=== PATIENT | male | born 1950 | race Caucasian/White ===

== ENCOUNTER → 2016-10-02 | Outpatient (CLI) | payer MEDICARE, OTHER | LOC: GMAL 11:38 | PROVIDERS: ATTEND Family Medicine | DX: Z12.5 Encounter for screening for malignant neoplasm of prostate (principal) ==

== ENCOUNTER 2016-11-27 03:37 | Emergency (ER) | payer MEDICARE, OTHER ==
[2016-11-27] MEDS ORDERED: KETOROLAC TROMETHAMINE INJ 30 MG/ML VIAL IV ONE (04:01)
[2016-11-27] MEDS ORDERED: SODIUM CHLORIDE 0.9% 1000ML 1,000 ML IVS ONE (04:01)
[2016-11-27] MEDS ORDERED: ONDANSETRON INJ 4 MG/2 ML VIAL IV ONE (04:01)
--- NOTE | 2016-11-27 04:05 | ED.PDOC ---
History of Present Illness - General Chief Complaint: Abdominal Pain Stated Complaint: left lower quadrant pain, N/V Time Seen by Provider: 11/27/16 03:58 Information Source: patient, RN notes reviewed, Vital Signs reviewed Exam Limitations: no limitations - History of Present Illness Initial Comments: Patient c/o LLQ pain that woke him up around 1 am. Pain is constant but varying in intensity. + diaphoresis, + N/V. Pain radiates to his left testicle. + urinary frequency and urgency. Abdominal Pain Onset Location: LLQ Pain Radiation: groin Quality: severe, sharpness, stabbing Timing/Duration: 1-3 hours Improving Factors: nothing Worsening Factors: nothing Associated Symptoms: diaphoresis, nausea/vomiting Review of Systems - Review of Systems Constitutional: States: diaphoresis. Denies: chills, fever, malaise EENTM: States: no symptoms reported Respiratory: States: no symptoms reported. Denies: cough, short of breath Cardiology: States: no symptoms reported. Denies: chest pain, palpitations, syncope Gastrointestinal/Abdominal: States: see HPI, abdominal pain, nausea, vomiting. Denies: constipation, diarrhea Genitourinary: States: see HPI, frequency, pain Musculoskeletal: States: no symptoms reported. Denies: back pain Skin: States: no symptoms reported Neurological: States: no symptoms reported. Denies: headache Endocrine: States: no symptoms reported Past Medical History (General) - Patient Medical History Hx Seizures: No Hx Stroke: No Hx Dementia: No Hx Asthma: No Hx of COPD: No Hx Cardiac Disorders: Yes - 5 way bypass Hx Congestive Heart Failure: No Hx Pacemaker: No Hx Hypertension: Yes Hx Thyroid Disease: No Hx Diabetes: Yes Hx Gastroesophageal Reflux: Yes Hx Renal Disease: No Hx Cancer: No Hx of HIV: No Hx Hepatitis C: No Hx MRSA: No Surgical History: other - Vaccination History Hx Tetanus, Diphtheria Vaccination: No Hx Influenza Vaccination: Yes Hx Pneumococcal Vaccination: Yes Immunizations Up to Date: Yes - Social History Hx Tobacco Use: No Hx Chewing Tobacco Use: No Hx Alcohol Use: Yes - 1/2 gallon a week Hx Substance Use: No Hx Substance Use Treatment: No Hx Depression: No Hx Physical Abuse: No Hx Emotional Abuse: No Hx Suspected Abuse: No - Female History Patient : No Family Medical History - Family History Mother Family History: Unknown Physical Exam - Physical Exam General Appearance: Alert, Obvious distress, Restless, Well Developed, Well Groomed, Well Hydrated, Well Nourished Neck: non-tender, full range of motion, supple, normal inspection Respiratory: chest non-tender, lungs clear, normal breath sounds, no respiratory distress, no accessory muscle use Cardiovascular/Chest: regular rate, rhythm, no gallop, no JVD, no murmur Gastrointestinal/Abdominal: normal bowel sounds, non tender, soft, no organomegaly, no pulsatile mass Back Exam: normal inspection, no CVA tenderness Extremity: normal range of motion, non-tender, normal inspection Neurologic: no motor/sensory deficits, alert, normal mood/affect, oriented x 3 Skin Exam: normal color, warm/dry Lymphatic: no adenopathy Progress - Progress Progress: 11/27/16 04:50 Pain and nausea are much improved after Toradol and Zofran. 11/27/16 05:16 Discussed the results and home treatment with patient. He thinks he still has some hydrocodone at home. - Results/Orders Results/Orders: Laboratory Tests 11/27/16 04:00 WBC 11.4 H RBC 4.53 L Hgb 14.5 Hct 42.7 MCV 94.3 H MCH 32.0 H MCHC 34.0 RDW 13.5 Plt Count 241 MPV 8.0 Absolute Neuts (auto) 7.80 H Absolute Lymphs (auto) 2.10 Absolute Monos (auto) 1.10 H Absolute Eos (auto) 0.30 Absolute Basos (auto) 0.10 Neutrophils % 68.7 Lymphocytes % 18.3 L Monocytes % 9.7 H Eosinophils % 2.6 Basophils % 0.7 Sodium 135 Potassium 5.3 H Chloride 98 L Carbon Dioxide 27 Anion Gap 15.3 BUN 24 H Creatinine 0.90 BUN/Creatinine Ratio 26.7 H Random Glucose 202 H Serum Osmolality 279.9 Calcium 9.3 Total Bilirubin 0.4 AST 27 ALT 28 Alkaline Phosphatase 43 Serum Total Protein 7.4 Albumin 4.1 Globulin 3.3 Albumin/Globulin Ratio 1.2 Urine Color Yellow Urine Appearance Clear Urine pH 5.0 Ur Specific Warren 1.025 Urine Protein Trace Urine Glucose (UA) Negative Urine Ketones Negative Urine Blood Negative Urine Nitrite Negative Urine Bilirubin Negative Urine Urobilinogen 0.2 Ur Leukocyte Esterase Negative Urine RBC 0 Urine WBC 0-1 Ur Epithelial Cells 0-1 Urine Bacteria 0 Vital Signs - 8 hr 02/28/17 03:50 Temperature 97.7 F Pulse Rate [ 73 monitor] Respiratory 21 Rate Blood Pressure 157/95 [Left Arm] O2 Sat by Pulse 94 L Oximetry - EKG/XRAY/CT CT Ordered: Yes - 3mm L UVJ stone,mild hydro, otherwise normal Abd/Pelvis CT Departure - Departure Clinical Impression: Kidney stone on left side Time of Disposition: 05:17 Disposition: Discharge to Home or Self Care Condition: Good Departure Forms: ED Discharge - Pt. Copy, Patient Portal Self Enrollment Instructions: DI for Kidney Stones Diet: resume usual diet, other - Increase fluid intake Activity: increase activity as tolerated Referrals: Graham Gamino III, MD [Primary Care Provider] - 1-2 Weeks Prescriptions: Ondansetron [Zofran Odt] 4 mg PO Q4HR PRN #20 tab PRN Reason: Nausea/Vomiting Tramadol HCl 50 mg PO Q6HRS PRN #15 tab PRN Reason: Pain Home Medications: Ambulatory Orders Carvedilol 3.125 mg PO BID 10/12/14 Clopidogrel Bisulfate 75 mg PO DAILY 10/12/14 Lisinopril 20 mg PO BID 10/12/14 Potassium Chloride Microencaps [Klor-Con M10] 10 meq PO DAILY 10/12/14 Pravastatin Sodium [Pravachol] 40 mg PO BEDTIME 10/12/14 Spironolactone [Aldactone] 25 mg PO DAILY@0700 10/12/14 Amlodipine Besylate 10 mg PO QAM 11/27/16 Aspirin [Aspirin Adult Low Dose] 81 mg PO QAM 11/27/16 Furosemide [Lasix] 40 mg PO DAILY 11/27/16 Glimepiride 1 mg PO QPM 11/27/16 Hydrochlorothiazide 12.5 mg PO BID 11/27/16 Metformin HCl 500 mg PO BID 11/27/16 Nitroglycerin 0.4 mg SL PRN 11/27/16 Ondansetron [Zofran Odt] 4 mg PO Q4HR PRN #20 tab 11/27/16 Phentermine HCl 37.5 mg PO DAILY 11/27/16 Tramadol HCl 50 mg PO Q6HRS PRN #15 tab 11/27/16 Vardenafil HCl [Levitra] 20 mg PO PRN 11/27/16
[2016-11-27 05:29] VITALS: BP 129/81; TEMP 97.9; O2SAT 95
--- NOTE | 2016-11-30 13:37 | CT ---
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 TECHNIQUE: Volumetric CT acquisition was performed through the abdomen and pelvis. Images in the axial and coronal planes were presented for interpretation FINDINGS: The visualized portions of the lung bases are clear. The cardiomediastinal structures are within normal limits. Within the upper abdomen, the liver and spleen are normal in size and morphology. There is diffuse fatty infiltration of the liver. The gallbladder is normal in morphology. The intra/extrahepatic biliary tree is normal in appearance. The pancreas and adrenal glands are normal. The right kidney is normal in size in the right ureter is normal in course and caliber. There are no right renal calculi, distal obstructing stones, or evidence of hydronephrosis/hydroureter. The left kidney is edematous and enlarged. There is a 3 mm partially obstructing stone at the left ureterovesicular junction on axial image 81. There is mild left-sided hydronephrosis and hydroureter. There are no additional left renal calculi or ureteral stones. The stomach and small intestines are within normal limits without evidence of bowel dilation or wall thickening. The appendix is well-visualized and normal, best seen on axial image 61 medial to the cecum. The colon is stool filled and unremarkable. There are moderate descending and sigmoid colonic diverticula without associated wall thickening or inflammatory changes. Within the pelvis, the bladder and rectum are normal. The prostate is age-appropriate. There are no pathologically enlarged inguinal, retroperitoneal, portacaval, or mesenteric lymph nodes. The soft tissue structures of the abdominal wall are normal. There are degenerative changes of the lower lumbar spine with bilateral L5 pars interarticularis defects. There is disc space narrowing and vacuum disc phenomenon at the L4/L5 and L5/S1 levels. There are extensive vascular calcifications throughout the abdominal aorta and its primary branches. Limited evaluation of the venous structures demonstrates no gross abnormalities. IMPRESSION: 1. Partially obstructing 3 mm left ureterovesicular junction stone. 2. No additional renal calculi or distal stones. 3. Degenerative changes of the lower lumbar spine with bilateral L5 spondylolysis. 4. Diverticulosis without evidence of diverticulitis. 5. Fatty liver. Electronically signed by: Sapphire Granados MD 11/27/2016 4:50 AM INDUSTRIAL ORGANIZATIONAL PSYCHOLOGIST
== END 2016-11-27 05:29 | disposition home or self-care (01) ==
LOC: ER 03:37
DX: N20.0 Calculus of kidney (principal); Z95.1 Presence of aortocoronary bypass graft; I10 Essential (primary) hypertension; E11.9 Type 2 diabetes mellitus without complications; K21.9 Gastro-esophageal reflux disease without esophagitis; Z79.82 Long term (current) use of aspirin; Z79.899 Other long term (current) drug therapy
CPT/HCPCS: 74176; 80053; 81001; 85025; J1885; J2405; J7030

== ENCOUNTER 2017-01-17 10:12 | Inpatient (IN) | payer MEDICARE, OTHER ==
--- NOTE | 2017-01-17 10:13 | HP ---
SUPERVISING PHYSICIAN: Dimitris Cantu M.D. CHIEF COMPLAINT: Failure to respond to outpatient treatment plan for an acute upper respiratory infection with concern for early pneumonia. HISTORY OF PRESENT ILLNESS: Mr. Azevedo is 66 year-old male patient of Dr. Gamino' who was seen this past Saturday along with his for an upper respiratory infection. They were both started on antibiotics to include Levaquin as well as nebulizer Albuterol treatments and steroids. His slowly progressed and her symptoms to improve, however Mr. Azevedo has slowly shown a deterioration in his to the point that he is significantly short of breath with any exertional effort and is now starting to cough up purulent sputum and maintain low O2 sats on room air. He does have a significant history of type 2 diabetes mellitus, congestive heart failure and cardiovascular disease. Given that he has failed to respond to antibiotics, steroids and bronchodilator treatments in the outpatient setting, and with the underlying co-morbidities to include diabetes, congestive heart failure and cardiovascular disease, Dr. Gamino requested the patient be admitted to the hospital for continuation of treatment and concerns for worsening acute bronchitis developing into pneumonia. The patient was directly admitted in stable condition to the Medical/Surgical floor. PAST MEDICAL HISTORY: 1. Coronary artery disease. 2. Hyperlipidemia. 3. Hypertension. 4. Previous myocardial infarction in February of 2001 for which he received lytics. 5. Radial head fracture in March of 2004 after he fell off a ladder. 6. Type 2 diabetes diagnosed in 2013 with last A1c being 6.6. 7. Diverticulosis. 8. Fatty liver as noted on recent CT exam. 9. Recent history of kidney stones on 11/27/16. PAST SURGICAL HISTORY: 1. Five vessel coronary artery bypass graft in 08/31/14. Last echocardiogram of 07/09/14 showed an ejection fraction of 65%. HOME MEDICATIONS: 1. Levitra 20 mg as needed. 2. Tramadol 50 mg every 6 hours p.r.n. 3. Aldactone 25 mg daily. 4. Pravachol 80 mg at bedtime. 5. Klor-Con M10 30 mEq daily. 6. Phentermine 37.5 mg daily. 7. Zofran 4 mg every 4 hours as needed. 8. Nitroglycerin 0.4 mg sublingual as needed. 9. Metformin 500 mg b.i.d. 10. Lisinopril 20 mg b.i.d. 11. Hydrochlorothiazide 12.5 mg twice daily. 12. Glimepiride 1 mg daily. 13. Lasix 40 mg daily. 14. Plavix 75 mg daily. 15. Carvedilol 25 mg twice daily. 16. Low dose aspirin 81 mg daily. 17. Amlodipine 10 mg daily. Please refer to an updated verified list of medications in the electronic medical records. CURRENT MEDICATIONS PRESCRIBED PRIOR TO ADMISSION: 1. Prednisone tapering dose pack. 2. Levaquin 500 mg daily for 10 days receiving 4 days. ALLERGIES: CODEINE. FAMILY HISTORY: Father at age 42 secondary to a plane crash. Mother at age 60 from Alzheimer's. 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 Currently lives in [place]. He does have a history of using smokeless tobacco and has a previous history of smoking tobacco but quit 35 years previously. He does note that he drinks alcohol on a regular basis to include liquor approximately up to 6 drinks daily. REVIEW OF SYSTEMS: CONSTITUTIONAL: Notes that he has had some chills but no documented fevers and some general malaise since Saturday. HEENT: Denies any nasal congestion or headaches. RESPIRATORY: As noted in the history of present illness, productive cough, increase in shortness of breath with wheezing. HEART: Denies any chest pains or palpitations. Does have a history of coronary artery disease with a previous coronary artery bypass graft. GASTROINTESTINAL: Denies any nausea, vomiting or diarrhea. GENITOURINARY: He has had increased dysuria that has been present for several months, especially more so with increasing frequency at night. Denies any discomfort or other urinary symptoms. He did have a recent CT of the abdomen on 11/27/16 for a kidney stone. NEUROLOGIC: Denies any headaches, syncopal episodes or vision changes. PHYSICAL EXAMINATION: VITAL SIGNS: Temperature 98.2, pulse 77, blood pressure 110/73, respirations 22 to 24 with some notable increased work to breathe and labored with audible wheezing with O2 saturations on room air showing 90%. Admission weight is 139.6 kg. GENERAL: Initially on admission, the patient was obviously short of breath with some mild respiratory distress noted which did improve with breathing treatments with the patient being somewhat anxious, but after breathing treatments was in no obvious acute distress. HEENT: Tympanic membranes are clear bilaterally. Oropharynx is pink and moist without any lesions. There is no jugular venous distention. NECK: Supple. CHEST: Breath sounds are diminished throughout with diffuse wheezing more prominent expiratory than inspiratory with a prolonged expiratory phase but no rhonchi or rales are noted. CARDIOVASCULAR: Regular rate and rhythm without appreciable murmurs, gallops, or rubs. ABDOMEN: Obese but soft, non-tender. Positive bowel sounds. EXTREMITIES: No clubbing, cyanosis or edema. NEUROLOGIC: He is alert and oriented times three with no focal motor deficits noted. LABORATORY: White count on admission showed slight leukocytosis at 11.7 with hemoglobin 13.7, hematocrit 41.3, platelet count 215,000. Differential did show a left shift. Chemistries showed normal electrolytes with potassium 4.4, sodium 140, carbon dioxide was elevated at 32, BUN 18, creatinine 0.8, glucose 139, calcium 8.7, magnesium 1.5. Liver functions show to be within normal limits. BNP was 62. Urinalysis showed to be within normal limits. MICROBIOLOGY: Blood cultures are pending. Sputum culture is pending. RADIOLOGY: Chest x-ray on admission per radiology interpretation showed cardiomegaly with atelectatic type infiltrate observed in the lingula. ASSESSMENT: 1. Acute upper respiratory infection with bronchitis having failed to respond to outpatient treatment plan with developing lingular pneumonia as noted on radiographic studies and some mild hypoxia on admission with some hypercapnia as well having previously been on bronchodilators, steroids and Levaquin, likely community acquired. 2. Significant history of coronary artery disease with a previous myocardial infarction in February of 2001 and a five vessel coronary artery bypass graft in 2013. 3. Hypertension. 4. Hyperlipidemia. 5. Type 2 diabetes mellitus. 6. Obesity as noted with a body mass index of 41.7. 7. Chronic congestive heart failure with last echocardiogram noted to have an ejection fraction of 65% in 2014 after review of medical records, unknown etiology, likely secondary to previous myocardial infarction with the patient having a normal BNP on admission with no overt signs of exacerbation. 8. Chronic abuse of smokeless tobacco. 9. History of regular alcohol usage with no mention of alcohol abuse with last CT on 11/27/16 indicating a fatty liver. 10. History of kidney stones. 11. Leukocytosis possibly secondary to underlying pneumonia versus some demarginalization from previous steroid administration. PLAN: The patient will be admitted to the Medical/Surgical floor for treatment of community-acquired lingular pneumonia having failed to respond to outpatient treatment plan with previous bronchodilators, steroids and Levaquin. He will be continued on Levaquin as it was noted that both his and himself had similar illnesses and the did show improvement with Levaquin, but given the patient's multiple comorbidities, the patient has failed to respond adequately to treatment. He will be continued on aggressive bronchodilator treatments, chest physiotherapy and oxygen as needed. Will continue with some steroids initially 80 mg every 6 hours times 4 doses with close monitoring of his blood sugars on a sliding scale as per protocol. Will start him on DVT prophylaxis as per protocol. Will continue with Levaquin initially at 750 mg per 24 with doses based off kidney function and continue treatment with reevaluation with a repeat chest x-ray and CBC and BMP in the morning. Will anticipate his length of stay to be 2 to 3 days at which time if he is clinically improved, the patient can continue with outpatient treatment plan to have close clinical followup with his primary care provider, Dr. Gamino. Until discharge, will continue to monitor the patient closely and treat appropriately. #[id number] [facility]
[2017-01-17] MEDS ORDERED: ACETAMINOPHEN 325 MG TAB PO PRN (10:23)
[2017-01-17] MEDS ORDERED: SODIUM CHLORIDE 0.9% (FLUSH) 10 ML SYG IV PRN (10:23)
[2017-01-17] MEDS ORDERED: ALBUTEROL SULFATE 2.5 MG/3 ML VIAL NEB PRN (10:23)
[2017-01-17] MEDS ORDERED: DEXTROSE 50% 25 GM/50 ML SYG IV PRN (10:23)
[2017-01-17] MEDS ORDERED: GLUCAGON INJ 1 MG VIAL SUBCU PRN (10:23)
[2017-01-17] MEDS ORDERED: IV SET AND CAP CHANGE INJ INJ SCH (10:30)
[2017-01-17] MEDS: IPRATROPIUM/ALBUTEROL 3 ML VIAL INH SCH ×3 (10:51→20:46)
[2017-01-17] MEDS: levoFLOXacin 750MG IV 750 MG in PREMIX BAG 1 BAG IVPB SCH (11:23)
--- NOTE | 2017-01-17 11:59 | RAD ---
EXAM DESCRIPTION: Chest,2 Views CLINICAL HISTORY: 66 years Male, Pneumonia COMPARISON: 12 October 2014 TECHNIQUE: PA/lateral FINDINGS: Patient is poststernotomy. Cardiomegaly is evident. No pleural fluid is seen. Atelectatic type infiltrate is observed in the region of the lingula. The right chest is free of acute infiltrate. IMPRESSION: 1. The patient is poststernotomy and cardiomegaly is evident. 2. Atelectatic type infiltrate is observed in the lingula. Electronically signed by: Graham Roman MD 01/17/2017 11:58 AM CDT
[2017-01-17] MEDS: INSULIN LISPRO 100 UNITS/ML PEN SUBCU SCH ×3 (12:22→21:02)
[2017-01-17] MEDS ORDERED: MAGNESIUM SULFATE PREMIX 2GM 2 GM in PREMIX BAG 1 BAG IVPB ONE (13:00)
[2017-01-17] MEDS ORDERED: MAGNESIUM SULFATE PREMIX 2GM 50 ML IVPB ONE (13:03)
[2017-01-17] MEDS: KCL 20MEQ/0.45% NS 1,000 ML IVS PRN (14:17)
[2017-01-17] MEDS: methylPREDNISolone SODIUM SUC 125 MG/2 ML VIAL IV SCH ×2 (14:30→19:53)
[2017-01-17] MEDS ORDERED: PANTOPRAZOLE SODIUM IV 40 MG VIAL ONE (19:12)
[2017-01-17] MEDS: SODIUM CHLORIDE 0.9% (FLUSH) 10 ML SYG IV SCH (21:16)
[2017-01-18] MEDS: methylPREDNISolone SODIUM SUC 125 MG/2 ML VIAL IV SCH ×4 (01:52→22:55)
[2017-01-18] MEDS: KCL 20MEQ/0.45% NS 1,000 ML IVS PRN (02:48)
--- NOTE | 2017-01-18 06:21 | RAD ---
EXAM: Two view chest. INDICATION: Chest pain. COMPARISON: Chest x-ray: 01/17/2017. FINDINGS: Cardiac silhouette: At the upper limit of normal in size [place]: Unremarkable. Lobar consolidation: None. Pleural effusion: None. Pneumothorax: None. Other: Median sternotomy wires are noted Bones: Unremarkable. Other: None. IMPRESSION: 1. No acute cardiopulmonary process. Electronically signed by: Nav Brown MD 01/18/2017 6:20 AM CDT
[2017-01-18] MEDS ORDERED: PANTOPRAZOLE SODIUM IV 40 MG VIAL IV SCH (06:30)
[2017-01-18] MEDS: INSULIN LISPRO 100 UNITS/ML PEN SUBCU SCH ×4 (07:46→21:28)
[2017-01-18] MEDS: SODIUM CHLORIDE 0.9% (FLUSH) 10 ML SYG IV SCH ×2 (07:50→20:47)
[2017-01-18] MEDS: IPRATROPIUM/ALBUTEROL 3 ML VIAL INH SCH ×4 (08:24→20:23)
[2017-01-18] MEDS ORDERED: FUROSEMIDE INJ 40 MG/4 ML VIAL IV ONE (08:47)
[2017-01-18] MEDS ORDERED: metFORMIN HCL 500 MG TAB PO SCH (09:00)
[2017-01-18] MEDS ORDERED: FUROSEMIDE 40 MG TAB PO SCH (09:00)
[2017-01-18] MEDS ORDERED: CARVEDILOL 12.5 MG TAB ONE (09:15)
[2017-01-18] MEDS: CLOPIDOGREL 75 MG TAB PO SCH (09:18)
[2017-01-18] MEDS: TAMSULOSIN 0.4 MG CAP PO SCH (09:18)
[2017-01-18] MEDS: CARVEDILOL 12.5 MG TAB PO SCH ×2 (09:18→20:45)
[2017-01-18] MEDS: POTASSIUM CHLORIDE 10 MEQ TAB PO SCH (09:18)
[2017-01-18] MEDS: ASPIRIN TABLET 325 MG TAB PO SCH (09:19)
[2017-01-18] MEDS: LISINOPRIL 10 MG TAB PO SCH ×2 (09:19→20:45)
[2017-01-18] MEDS: hydroCHLOROthiazide 12.5 MG CAP PO SCH ×2 (09:20→21:28)
[2017-01-18] MEDS: amLODIPine BESYLATE 5 MG TAB PO SCH (09:20)
[2017-01-18] MEDS: levoFLOXacin 750MG IV 750 MG in PREMIX BAG 1 BAG IVPB SCH (09:58)
--- NOTE | 2017-01-18 10:23 | PCM.CORE ---
Physician DVT/VTE - Nurse DVT Assessment & Total Each Risk Factor Represents 3 Points: Medical PT with Hx of DE, CHF, Severe infection/sepsis Each Risk Factor Represents 2 Points: Age 60-74 Each Risk Factor Represents 1 Point: Medical PT at Bed Rest Each Risk Factor is 1 Point: Obesity (BMI >25), Serious Lung disease (pnemonia < 1month, COPD, emphysema,etc) DVT Assessment Score: 8 - 5 or more Very High Risk Treatments: Early Ambulation *, Sequential Compression Device Pharmacological: Enoxaparin 40mg SQ Daily
--- NOTE | 2017-01-18 11:01 | PN ---
SUPERVISING PHYSICIAN: Rell Cantu MD DATE: 01/18/17 SUBJECTIVE: The patient feels somewhat better today. He says he is able to breathe a lot easier. He did have a little shortness of breath through the night requiring additional breathing treatments, but is doing well this morning. He remains afebrile. OBJECTIVE: VITAL SIGNS: T-max 98.4. Pulse 90. Blood pressure 124/86. Respirations 20. Saturation 92% on room air. I&Os show negative balance of 2261 with 2889 in, 5150 out. Weight 138.1 kg, which is down from 139.6 on admission. GENERAL: The patient is resting, sitting at the edge of the bed having just finished a breathing treatment. He is alert. CHEST: Lungs are much more aerated today. He still remains somewhat diminished towards the bases with just a faint coarse rhonchi sound on the left posterior aspect with some faint inspiratory wheezing. HEART: Regular rate and rhythm. ABDOMEN: Obese, but soft and nontender. Positive bowel sounds. EXTREMITIES: No cyanosis, clubbing or edema. NEUROLOGIC: Alert and oriented times three. LABORATORY: White count remains elevated at 11.1, hemoglobin 14.5, hematocrit 44.3, platelet count 241,000. Differential continues to show a left shift. Chemistries show sodium 134, potassium 4.3, BUN 18, creatinine 0.82. Glucoses have been 197 to 44. Liver functions show slightly elevated AST at 45. Magnesium is normalized this morning at 1.9. Urinalysis yesterday was within normal limits. MICROBIOLOGY: Sputum culture pending. Blood cultures negative first 24 hours. RADIOLOGY: Repeat two view chest x-ray this morning per radiology interpretation shows no acute cardiopulmonary process. ASSESSMENT: 1. Acute upper respiratory infection with bronchitis, having failed to respond to outpatient treatment with developing lingular pneumonia as noted on initial radiographic studies on admission with some mild hypoxemia as well with hypercapnia, showing improvement after starting on bronchodilators, corticosteroids, and continued on Levaquin, felt to be likely community acquired. 2. Significant history of coronary artery disease with previous myocardial infarction in February of 2001 and 5 vessel coronary artery bypass graft in 2013. 3. Hypertension. 4. Hyperlipidemia. 5. Type 2 diabetes mellitus. 6. Obesity with body mass index of 41.7. 7. Chronic congestive heart failure with last echocardiogram noted to have an ejection fraction of 65% in 2014 from review of medical records, unknown etiology, likely secondary to previous myocardial infarction with the patient having normal BNP on admission with no overt signs of exacerbation. 8. Chronic abuse of smokeless tobacco. 9. History of regular alcohol usage with no mention of alcohol abuse with last CT on 11/27/16 indicating a fatty liver. 10. History of kidney stones. 11. Leukocytosis, continued, felt to be secondary to underlying pneumonia as well as demargination from continued steroid administration. 12. Hypomagnesemia, improved after replacement. PLAN: We will continue with bronchodilator and aggressive pulmonary hygiene treatment today as well as continued Solu-Medrol with tapering dose. He will continue on Levaquin. We will continue to monitor closely and anticipate discharge probably tomorrow. Until then, we will continue to monitor the patient closely and treat appropriately. #[id number] [facility]
[2017-01-18] MEDS: ENOXAPARIN SODIUM 40 MG/0.4 ML SYG SUBCU SCH (11:39)
[2017-01-18] MEDS ORDERED: TEMAZEPAM 15 MG CAP PO PRN (15:04)
[2017-01-18] MEDS ORDERED: GLIMEPIRIDE 2 MG TAB ONE (16:54)
[2017-01-18] MEDS: metFORMIN HCL 500 MG TAB PO SCH (17:04)
[2017-01-18] MEDS ORDERED: GLIMEPIRIDE 2 MG TAB PO SCH (18:00)
[2017-01-18] MEDS ORDERED: guaiFENesin ER TAB 600 MG TAB ONE (19:50)
[2017-01-18] MEDS ORDERED: PANTOPRAZOLE SODIUM TAB 40 MG PO ONE (19:50)
[2017-01-18] MEDS ORDERED: PRAVASTATIN SODIUM 20 MG TAB ONE (19:51)
[2017-01-18] MEDS: guaiFENesin ER TAB 600 MG TAB PO SCH (20:45)
[2017-01-18] MEDS ORDERED: PRAVASTATIN SODIUM 20 MG TAB PO SCH (21:00)
[2017-01-18] MEDS ORDERED: SODIUM CHLORIDE 0.9% (FLUSH) 10 ML SYG IV SCH (21:00)
[2017-01-19 02:32] VITALS: TEMP 97.6
[2017-01-19] MEDS: methylPREDNISolone SODIUM SUC 125 MG/2 ML VIAL IV SCH (05:16)
[2017-01-19] MEDS ORDERED: PANTOPRAZOLE SODIUM TAB 40 MG PO SCH (06:30)
[2017-01-19] MEDS ORDERED: SPIRONOLACTONE 25 MG TAB PO SCH (07:00)
[2017-01-19] MEDS: IPRATROPIUM/ALBUTEROL 3 ML VIAL INH SCH (07:15)
[2017-01-19] MEDS ORDERED: FUROSEMIDE 40 MG TAB ONE (07:21)
[2017-01-19] MEDS: INSULIN LISPRO 100 UNITS/ML PEN SUBCU SCH ×2 (07:27→11:48)
[2017-01-19] MEDS: POTASSIUM CHLORIDE 10 MEQ TAB PO SCH (07:28)
[2017-01-19] MEDS: metFORMIN HCL 500 MG TAB PO SCH (07:28)
[2017-01-19] MEDS: CARVEDILOL 12.5 MG TAB PO SCH (08:23)
[2017-01-19] MEDS: CLOPIDOGREL 75 MG TAB PO SCH (08:23)
[2017-01-19] MEDS: amLODIPine BESYLATE 5 MG TAB PO SCH (08:23)
[2017-01-19] MEDS: guaiFENesin ER TAB 600 MG TAB PO SCH (08:23)
[2017-01-19] MEDS: hydroCHLOROthiazide 12.5 MG CAP PO SCH (08:23)
[2017-01-19] MEDS: TAMSULOSIN 0.4 MG CAP PO SCH (08:23)
[2017-01-19] MEDS: ASPIRIN TABLET 325 MG TAB PO SCH (08:24)
[2017-01-19] MEDS: SODIUM CHLORIDE 0.9% (FLUSH) 10 ML SYG IV SCH (08:24)
[2017-01-19] MEDS: LISINOPRIL 10 MG TAB PO SCH (08:24)
[2017-01-19] MEDS: ENOXAPARIN SODIUM 40 MG/0.4 ML SYG SUBCU SCH (08:26)
[2017-01-19] MEDS ORDERED: BIFIDOBACTERIUM INFANTIS 4 MG CAP PO SCH (09:00)
[2017-01-19 10:08] VITALS: BP 138/87; O2SAT 94
[2017-01-19] MEDS: levoFLOXacin 750MG IV 750 MG in PREMIX BAG 1 BAG IVPB SCH (11:48)
--- NOTE | 2017-01-20 12:24 | DS ---
SUPERVISING PHYSICIAN: Jim Milligan M.D. DISCHARGE DIAGNOSIS: 1. Acute upper respiratory infection with acute bronchitis, having failed to respond to outpatient treatment with developing lingular pneumonia felt to be community acquired with the patient being hypoxic on admission. 2. Significant history of coronary artery disease with previous myocardial infarction in February of 2001 with a 5 vessel coronary artery bypass graft in 2013. 3. Hypoxemia on admission secondary to underlying acute respiratory infection likely community acquired pneumonia as noted in number 1. 4. Hypertension. 5. Hyperlipidemia. 6. Type 2 diabetes mellitus. 7. Obesity with body mass index of 41.7. 8. Chronic congestive heart failure with last echocardiogram noted to have an ejection fraction of 65% in 2014 from review of medical records, unknown etiology, likely secondary to previous myocardial infarction with the patient having normal BNP on admission with no overt signs of exacerbation. 9. Chronic abuse of smokeless tobacco. 10. History of regular alcohol usage with no mention of alcohol abuse with last CT on 11/27/16 indicating a fatty liver. 11. History of kidney stones. 12. Leukocytosis probably contributing to underlying pneumonia as well as some demargination from continued steroid administration. 13. Hypomagnesemia, improved after replacement. HISTORY OF PRESENT ILLNESS: Mr. Azevedo is 66 year-old male patient of Dr. Camp who was seen this past Saturday along with his for an upper respiratory infection. They were both started on antibiotics to include Levaquin as well as nebulizer Albuterol treatments and steroids. His slowly progressed and her symptoms to improve, however Mr. Azevedo has slowly shown a deterioration in his to the point that he is significantly short of breath with any exertional effort and was starting to have a cough with more purulent sputum, and was maintaining low O2 sats on room air. He does have a significant history of type 2 diabetes mellitus with congestive heart failure and cardiovascular disease. Given that he has failed to respond to outpatient treatment plan with antibiotics, steroids and bronchodilator treatments, and these underlying co-morbidities, the patient was admitted to the hospital for continuation of treatment and concerns for worsening bronchitis and developing into early pneumonia. The patient was directly admitted in stable condition to the Medical/Surgical floor. LABORATORY STUDIES: Initial white count did show an elevation to 11.7, at discharge was again elevated at 13.5 but the patient was on corticosteroids parenterally. Hemoglobin and hematocrit were stable, at discharge was 12.9 and 39.5, platelet count was 221,000. Differential did show a left shift which continued through admission. Chemistries on admission showed electrolytes with potassium 4.4, carbon dioxide 32, BUN 18, creatinine 0.82, at discharge his carbon dioxide had normalized with sodium 132, potassium 4.3 but the patient does take Hydrochlorothiazide. Glucoses were fairly elevated secondary to corticosteroid administration ranging from 132 to 290. Liver functions initially on admission showed just a slightly elevated AST at 45, this had normalized after IV fluids and was down to 42. Urinalysis on admission showed to be within normal limits. MICROBIOLOGY: Sputum culture showed normal ruthy at 48 hours. He had 2 blood cultures that remained negative at 48 hours. RADIOLOGY: Initial chest x-ray on direct admission showed the patient to have some atelectatic type infiltrations observed in the lingula. Repeat chest x- ray on the indicated by radiology interpretation two view chest, no acute cardiopulmonary processes. HOSPITAL COURSE: Mr. Azevedo was admitted directly as noted in his History of Present Illness from Dr. Gamino' office. He was started on aggressive pulmonary hygiene and bronchodilator treatments along with Levaquin 750 mg daily. The patient did show good progression in his clinical symptoms and an ambulation study on the morning of discharge showed he had a sat of 95%. During ambulation it went down to a low of 90 but never dropped below 90 and returned to 95% after 5 minute rest. He remained afebrile. He also complained of some difficulty in urination with starting urination but no dysuria. He noted that this had been a problem for him in the past, so therefore I started him on Flomax to assist with his symptoms. He was also started on corticosteroids that were tapered down prior to discharge and again he showed clinical improvement, and was felt well enough to be discharged to continue with outpatient treatment plan. PLAN: Mr. Azevedo was discharged on 01/19/17 with instructions to call Dr. Gamino ' office on Saturday to schedule a followup appointment in the following week. We was to resume his home medications as instructed and to finish his previous Medrol Dosepak and then start a new prescription as directed. Resume the antibiotics that he was taking to include Levaquin prior to admission and take those to completion. He was to take Nasonex and Claritin for allergies rhinitis or sinus symptoms as prescribed daily during allergy season. He was to use his nebulizer treatment for Albuterol 3 times daily for at least 2 days after discharge at which time he could go to p.r.n. as needed every 4 hours. He was to keep his Albuterol inhaler with him while he is away from home at work and to use if he had any shortness of breath or wheezing. He was also to take Mucinex as prescribed to help mobilize mucous and relieve sinus symptoms and chest congestion. He was to resume all other medications as previous to admission. Activity was to increase as tolerated. 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 He is to use his incentive spirometry to help increase his lung capacity and decrease shortness of breath as well as return to the hospital should he have any worsening of those symptoms. Diet included a diabetic low salt diet with decreased fat and cholesterol. It was noted that while taking steroids he was told his blood sugar would be higher than normal, to please monitor daily. He was to return to the hospital should he have any worsening of his symptoms or failure to improve. At discharge, new prescriptions included: 1. Albuterol inhaler 2 puffs inhaled every 4 hours as needed, 1 inhaler. 2. Albuterol sulfate nebs 2.5 mg nebulized 4 times daily as needed, #30. 3. Align 4 mg daily, #30. 4. Guaifenesin 600 mg twice daily, #28. 5. Claritin 10 mg daily, #30. 6. Medrol Dosepak 4 mg take as directed, 1 pack. 7. Nasonex 50 mcg nasal spray daily 2 sprays each nostril. 8. Flomax 0.4 mg daily, #30. Condition at discharge was stable. #[id number] [facility]
== END 2017-01-19 11:45 | disposition home or self-care (01) | DRG 194 ==
LOC: MS 10:12
PROVIDERS: ADMIT Family Medicine; ATTEND Nurse Practitioner Family
DX: J18.9 Pneumonia, unspecified organism (principal); Z68.41 Body mass index [BMI] 40.0-44.9, adult; J20.9 Acute bronchitis, unspecified; R09.02 Hypoxemia; I25.10 Atherosclerotic heart disease of native coronary artery without angina pectoris; I11.0 Hypertensive heart disease with heart failure; E78.5 Hyperlipidemia, unspecified; I50.9 Heart failure, unspecified; F17.290 Nicotine dependence, other tobacco product, uncomplicated; K76.0 Fatty (change of) liver, not elsewhere classified; E83.42 Hypomagnesemia; E11.65 Type 2 diabetes mellitus with hyperglycemia; T38.0X5A Adverse effect of glucocorticoids and synthetic analogues, initial encounter; Y92.230 Patient room in hospital as the place of occurrence of the external cause; R39.198 Other difficulties with micturition; J30.9 Allergic rhinitis, unspecified; I25.2 Old myocardial infarction; E66.9 Obesity, unspecified; Z72.89 Other problems related to lifestyle; Z79.84 Long term (current) use of oral hypoglycemic drugs; Z95.1 Presence of aortocoronary bypass graft; Z79.02 Long term (current) use of antithrombotics/antiplatelets; Z79.82 Long term (current) use of aspirin; Z79.899 Other long term (current) drug therapy

== ENCOUNTER → 2017-04-10 | Outpatient (CLI) | payer MEDICARE, OTHER | END | disposition home or self-care (01) | LOC: GMAL 10:54 | PROVIDERS: ATTEND Family Medicine | DX: D51.3 Other dietary vitamin B12 deficiency anemia (principal); E55.9 Vitamin D deficiency, unspecified ==

== ENCOUNTER 2017-07-30 03:43 | Emergency (ER) | payer MEDICARE, OTHER ==
[2017-07-30] MEDS ORDERED: IPRATROPIUM/ALBUTEROL 3 ML VIAL NEB ONE (04:02)
--- NOTE | 2017-07-30 04:04 | ED.PDOC ---
History of Present Illness - General Chief Complaint: Respiratory Problem Stated Complaint: short of breath,cough Time Seen by Provider: 07/30/17 03:59 Source: patient Exam Limitations: no limitations - History of Present Illness Initial Comments: Graham Azevedo 67 y/o male stated that he had slightly productive cough , nasal congestion,achy throat and sob for the last 3 days.Denies exertional chest pains or pleuritic chest pains ,no chills or fever.No ill contact,no foreign travel. Timing/Duration: other - 3 days Severity: moderate Possible Cause: other - history of hospitalization for pneumonia in december Improving Factors: nothing Worsening Factors: nothing Associated Symptoms: nasal congestion, nasal drainage Allergies/Adverse Reactions: Allergies Codeine Adverse Reaction (Mild, Verified 07/30/17 03:54) upset stomach Home Medications: Ambulatory Orders Carvedilol 25 mg PO BID 10/12/14 Clopidogrel Bisulfate 75 mg PO DAILY 10/12/14 Lisinopril 20 mg PO BID 10/12/14 Potassium Chloride Microencaps [Klor-Con M10] 30 meq PO DAILY 10/12/14 Pravastatin Sodium [Pravachol] 80 mg PO BEDTIME 10/12/14 Amlodipine Besylate 10 mg PO QAM 11/27/16 Furosemide [Lasix] 40 mg PO DAILY 11/27/16 Glimepiride 1 mg PO QPM 11/27/16 Metformin HCl 500 mg PO BID 11/27/16 Nitroglycerin 0.4 mg SL PRN PRN 11/27/16 Phentermine HCl 37.5 mg PO DAILY PRN 11/27/16 Aspirin 325 mg PO DAILY 01/17/17 Hydrochlorothiazide 12.5 mg PO BID 01/17/17 Levofloxacin [Levaquin] 500 mg PO DAILY 01/17/17 Spironolactone [Aldactone] 25 mg PO 0700 01/17/17 predniSONE 10 mg PO DAILY 01/17/17 Albuterol Inhaler [Ventolin Hfa Inhaler] 2 puff INH Q4HR PRN #1 inh 01/19/17 Albuterol Sulfate Nebs [Proventil Nebs] 2.5 mg NEB QID PRN #30 01/19/17 Bifidobacterium Infantis [Align] 4 mg PO DAILY #30 01/19/17 Loratadine [Claritin] 10 mg PO DAILY #30 cap 01/19/17 Mometasone Furoate (Nasal) [Nasonex] 50 mcg NA DAILY #1 ml 01/19/17 Tamsulosin [Flomax] 0.4 mg PO DAILY #30 01/19/17 guaiFENesin ER TAB [Mucinex Tab] 600 mg PO BID #28 01/19/17 methylPREDNISolone TAB [Medrol Tab] 4 mg PO DAILY #1 pack 01/19/17 Benzonatate Perles [Tessalon Perles] 200 mg PO BID #40 cap 07/30/17 Cefuroxime Axetil [Ceftin] 500 mg PO BID #20 tab 07/30/17 Doxycycline Hyclate 100 mg PO BID #30 cap 07/30/17 Review of Systems - Review of Systems Constitutional: States: no symptoms reported EENTM: States: see HPI, nose congestion, throat pain Respiratory: States: see HPI Cardiology: States: no symptoms reported Gastrointestinal/Abdominal: States: no symptoms reported Genitourinary: States: no symptoms reported Musculoskeletal: States: no symptoms reported Skin: States: no symptoms reported Past Medical History (General) - Patient Medical History Hx Seizures: No Hx Stroke: No Hx Dementia: No Hx Asthma: No Hx of COPD: No Hx Cardiac Disorders: Yes Hx Congestive Heart Failure: No Hx Pacemaker: No Hx Hypertension: Yes Hx Thyroid Disease: No Hx Diabetes: Yes Hx Gastroesophageal Reflux: Yes Hx Renal Disease: No Hx Cancer: No Hx of HIV: No Hx Hepatitis C: No Hx MRSA: No Hx Other PMH: Yes Surgical History: coronary bypass surgery, other - cardiac stent,left carotid artery stent - Vaccination History Hx Tetanus, Diphtheria Vaccination: No Hx Influenza Vaccination: No Hx Pneumococcal Vaccination: Yes - Social History Hx Tobacco Use: No Hx Chewing Tobacco Use: No Hx Alcohol Use: No Hx Substance Use: No Hx Substance Use Treatment: No Hx Depression: No Hx Physical Abuse: No Hx Emotional Abuse: No Hx Suspected Abuse: No - Activities of Daily Living Grooming Ability: Independent Eating (Feeding) Ability: Independent Toileting Ability: Independent - Female History Patient : No - Triage Comment ED Triage Comment: Pt refers to symptoms as when he had pnuemonia or bronchitis in past Family Medical History - Family History Mother Family History: Unknown Hx Family;Other: ALZHEIMERS Dementia Physical Exam - Physical Exam General Appearance: Alert, No apparent distress Eye Exam: bilateral normal ENT Exam: hearing grossly normal, TMs normal, pharynx normal, nasal congestion, nasal drainage, pharyngeal erythema Neck: non-tender, supple, trachea midline Respiratory: chest non-tender, no respiratory distress, rales - bases right>left Cardiovascular/Chest: normal peripheral pulses, regular rate, rhythm, no gallop , no murmur Gastrointestinal/Abdominal: normal bowel sounds, non tender, soft, no organomegaly Extremity: no pedal edema, no calf tenderness Neurologic: alert, normal mood/affect, oriented x 3 Skin Exam: normal color, warm/dry Lymphatic: no adenopathy Progress - Progress Progress: 07/30/17 05:52 Vital Signs - 8 hr 07/30/17 07/30/17 07/30/17 03:50 03:56 04:23 Temperature 99.2 F Pulse Rate 82 Pulse Rate [ 88 Right] Respiratory 22 22 20 Rate Blood Pressure 132/90 [Left Arm] O2 Sat by Pulse 92 L 90 L Oximetry 07/30/17 05:29 Temperature 99.2 F Pulse Rate Pulse Rate [ 84 Right] Respiratory 18 Rate Blood Pressure 125/74 [Left Arm] O2 Sat by Pulse 92 L Oximetry - Results/Orders Results/Orders: Laboratory Tests 07/30/17 07/30/17 07/30/17 04:10 04:10 04:40 WBC 22.3 H* RBC 4.18 L Hgb 13.2 L Hct 39.2 L MCV 93.7 MCH 31.5 H MCHC 33.7 RDW 14.2 Plt Count 257 MPV 8.0 Absolute Neuts (auto) 19.50 H Absolute Lymphs (auto) 1.40 Absolute Monos (auto) 1.10 H Absolute Eos (auto) 0.10 Absolute Basos (auto) 0.10 Neutrophils % Not Reportable Neutrophils % (Manual) 78.0 Lymphocytes % Not Reportable Lymphocytes % (Manual) 12.0 Monocytes % Not Reportable Monocytes % (Manual) 3.0 Eosinophils % Not Reportable Basophils % Not Reportable Band Neutrophils 6.0 Eosinophils 1.0 Platelet Estimate Normal Normal RBC Morphology Normal rbc morph Sodium 133 L Potassium 4.1 Chloride 94 L Carbon Dioxide 28 Anion Gap 15.1 BUN 15 Creatinine 0.87 BUN/Creatinine Ratio 17.2 Random Glucose 121 H Serum Osmolality 268.5 L Lactic Acid Calcium 8.8 Total Bilirubin 0.5 AST 20 ALT 22 Alkaline Phosphatase 32 L C-Reactive Protein B-Natriuretic Peptide 67.6 Serum Total Protein 6.9 Albumin 3.8 Globulin 3.1 Albumin/Globulin Ratio 1.2 Urine Color Urine Appearance Urine pH Ur Specific [place] Urine Protein Urine Glucose (UA) Urine Ketones Urine Blood Urine Nitrite Urine Bilirubin Urine Urobilinogen Ur Leukocyte Esterase Urine RBC Urine WBC Ur Epithelial Cells Urine Bacteria Group A Strep DNA 07/30/17 07/30/17 07/30/17 05:10 05:17 05:17 WBC RBC Hgb Hct MCV MCH MCHC RDW Plt Count MPV Absolute Neuts (auto) Absolute Lymphs (auto) Absolute Monos (auto) Absolute Eos (auto) Absolute Basos (auto) Neutrophils % Neutrophils % (Manual) Lymphocytes % Lymphocytes % (Manual) Monocytes % Monocytes % (Manual) Eosinophils % Basophils % Band Neutrophils Eosinophils Platelet Estimate Normal RBC Morphology Sodium Potassium Chloride Carbon Dioxide Anion Gap BUN Creatinine BUN/Creatinine Ratio Random Glucose Serum Osmolality Lactic Acid 1.6 Calcium Total Bilirubin AST ALT Alkaline Phosphatase C-Reactive Protein 8.2 H* B-Natriuretic Peptide Serum Total Protein Albumin Globulin Albumin/Globulin Ratio Urine Color Urine Appearance Urine pH Ur Specific [place] Urine Protein Urine Glucose (UA) Urine Ketones Urine Blood Urine Nitrite Urine Bilirubin Urine Urobilinogen Ur Leukocyte Esterase Urine RBC Urine WBC Ur Epithelial Cells Urine Bacteria Group A Strep DNA Negative 07/30/17 05:21 WBC RBC Hgb Hct MCV MCH MCHC RDW Plt Count MPV Absolute Neuts (auto) Absolute Lymphs (auto) Absolute Monos (auto) Absolute Eos (auto) Absolute Basos (auto) Neutrophils % Neutrophils % (Manual) Lymphocytes % Lymphocytes % (Manual) Monocytes % Monocytes % (Manual) Eosinophils % Basophils % Band Neutrophils Eosinophils Platelet Estimate Normal RBC Morphology Sodium Potassium Chloride Carbon Dioxide Anion Gap BUN Creatinine BUN/Creatinine Ratio Random Glucose Serum Osmolality Lactic Acid Calcium Total Bilirubin AST ALT Alkaline Phosphatase C-Reactive Protein B-Natriuretic Peptide Serum Total Protein Albumin Globulin Albumin/Globulin Ratio Urine Color Yellow Urine Appearance Clear Urine pH 8.5 H Ur Specific [place] 1.015 Urine Protein Negative Urine Glucose (UA) Negative Urine Ketones Negative Urine Blood Negative Urine Nitrite Negative Urine Bilirubin Negative Urine Urobilinogen 0.2 Ur Leukocyte Esterase Negative Urine RBC 0 Urine WBC 0 Ur Epithelial Cells 0 Urine Bacteria 0 Group A Strep DNA Recommended admission but wants to go home stated is sicker wants to bring her to hospital also;he has appointment with his primary md this afternoon. - EKG/XRAY/CT XRAY: chest - cardiomegaly;no acute pulmonary process noted Departure - Departure Clinical Impression: Neutrophilic leukocytosis, Bronchitis, Nasal congestion with rhinorrhea, Shortness of breath Time of Disposition: 06:00 Disposition: Discharge to Home or Self Care Condition: Fair Departure Forms: ED Discharge - Pt. Copy, Patient Portal Self Enrollment Referrals: Graham Gamino III, MD [Primary Care Provider] - 1-2 Weeks Prescriptions: Benzonatate Perles [Tessalon Perles] 200 mg PO BID #40 cap Cefuroxime Axetil [Ceftin] 500 mg PO BID #20 tab Doxycycline Hyclate 100 mg PO BID #30 cap Home Medications: Ambulatory Orders Carvedilol 25 mg PO BID 10/12/14 Clopidogrel Bisulfate 75 mg PO DAILY 10/12/14 Lisinopril 20 mg PO BID 10/12/14 Potassium Chloride Microencaps [Klor-Con M10] 30 meq PO DAILY 10/12/14 Pravastatin Sodium [Pravachol] 80 mg PO BEDTIME 10/12/14 Amlodipine Besylate 10 mg PO QAM 11/27/16 Furosemide [Lasix] 40 mg PO DAILY 11/27/16 Glimepiride 1 mg PO QPM 11/27/16 Metformin HCl 500 mg PO BID 11/27/16 Nitroglycerin 0.4 mg SL PRN PRN 11/27/16 Phentermine HCl 37.5 mg PO DAILY PRN 11/27/16 Aspirin 325 mg PO DAILY 01/17/17 Hydrochlorothiazide 12.5 mg PO BID 01/17/17 Levofloxacin [Levaquin] 500 mg PO DAILY 01/17/17 Spironolactone [Aldactone] 25 mg PO 0700 01/17/17 predniSONE 10 mg PO DAILY 01/17/17 Albuterol Inhaler [Ventolin Hfa Inhaler] 2 puff INH Q4HR PRN #1 inh 01/19/17 Albuterol Sulfate Nebs [Proventil Nebs] 2.5 mg NEB QID PRN #30 01/19/17 Bifidobacterium Infantis [Align] 4 mg PO DAILY #30 01/19/17 Loratadine [Claritin] 10 mg PO DAILY #30 cap 01/19/17 Mometasone Furoate (Nasal) [Nasonex] 50 mcg NA DAILY #1 ml 01/19/17 Tamsulosin [Flomax] 0.4 mg PO DAILY #30 01/19/17 guaiFENesin ER TAB [Mucinex Tab] 600 mg PO BID #28 01/19/17 methylPREDNISolone TAB [Medrol Tab] 4 mg PO DAILY #1 pack 01/19/17 Benzonatate Perles [Tessalon Perles] 200 mg PO BID #40 cap 07/30/17 Cefuroxime Axetil [Ceftin] 500 mg PO BID #20 tab 07/30/17 Doxycycline Hyclate 100 mg PO BID #30 cap 07/30/17 Additional Instructions: RETURN TO EMERGENCY ROOM NEEDED;Keep appointment with primary md today Continue with all home medications,Use Afrin nose spray -2 sprays each nose AM/ PM 3 days on 3 days off as needed for nasal congestion
[2017-07-30] MEDS ORDERED: OXYMETAZOLINE NASAL SPRAY 15 ML BTTL BNAS ONE (04:25)
--- NOTE | 2017-07-30 04:25 | RAD ---
EXAM DESCRIPTION: Chest,2 Views CLINICAL HISTORY: cough COMPARISON: 01/18/2017 FINDINGS: Frontal and lateral views of the chest. Cardiac megaly. Prior median sternotomy. Left carotid stent. Consolidation, pneumothorax, or pleural effusion. Minimal degenerative change of the spine. Upper abdominal soft tissues are unremarkable. IMPRESSION: 1. Cardiomegaly. No acute pulmonary process identified. Electronically signed by: Sky Estrada 07/30/2017 4:24 AM CDT
[2017-07-30] MEDS ORDERED: OXYMETAZOLINE NASAL SPRAY 15 ML BTTL BNAS PRN (04:31)
[2017-07-30] MEDS ORDERED: OXYMETAZOLINE NASAL SPRAY 15 ML BTTL ONE (04:32)
[2017-07-30] MEDS ORDERED: BENZONATATE PERLES 100 MG CAP PO ONE (04:44)
[2017-07-30] MEDS ORDERED: cefTRIAXone SODIUM 2 GM in SODIUM CHL 0.9% 100ML MINI-BAG 100 ML IVPB ONE (05:53)
[2017-07-30] MEDS ORDERED: DOXYCYCLINE HYCLATE CAP 100 MG CAP PO ONE (05:53)
[2017-07-30] MEDS ORDERED: SODIUM CHL 0.9% 100ML MINI-BAG 100 ML IVPB ONE (05:57)
[2017-07-30 07:04] VITALS: BP 121/78; TEMP 98.5; O2SAT 90
== END 2017-07-30 07:05 | disposition home or self-care (01) ==
LOC: ER 03:43
DX: J40 Bronchitis, not specified as acute or chronic (principal); R06.02 Shortness of breath; D72.828 Other elevated white blood cell count; I10 Essential (primary) hypertension; E11.9 Type 2 diabetes mellitus without complications; K21.9 Gastro-esophageal reflux disease without esophagitis; Z95.1 Presence of aortocoronary bypass graft; Z79.82 Long term (current) use of aspirin; Z79.02 Long term (current) use of antithrombotics/antiplatelets
CPT/HCPCS: 36415; 71020; 80053; 81001; 83605; 83880; 85025; 86140; 87040; 87070; 87502; 87651; 94640; J0696; J7050; J7620

== ENCOUNTER → 2017-10-21 | Outpatient (CLI) | payer MEDICARE, OTHER | END | disposition home or self-care (01) | LOC: GMAL 10:49 | PROVIDERS: ATTEND Family Medicine | DX: Z12.5 Encounter for screening for malignant neoplasm of prostate (principal) ==

== ENCOUNTER 2018-01-25 22:48 | Emergency (ER) | payer MEDICARE, OTHER ==
[2018-01-25] MEDS ORDERED: PHENYLEPHRINE 0.5% ONE (23:01)
--- NOTE | 2018-01-25 23:08 | ED.PDOC ---
History of Present Illness - General Stated Complaint: FALL OFF A OFFICE CHAIR Time Seen by Provider: 01/25/18 23:04 Source: patient Additional Information: 67 YEAR OLD WHITE MALE COMPLAINT OF NOSE BLEED AFTER HE FELL OFF THE CHAIR HE THINKS HE HAD A BRIEF SYNCOPAL EPISODE AFTER HE CHOCKED LATELY HE HAS BEEN HAVING TROUBLE SWALLOWING HE HAS HISTORY OF CAD HTN ON PLAVIX BETA EDIS AND VU INHIBITOR AND A DIURETIC ( HE HAS POSITIVE TILT IN ED ) IV FLUIDS WERE GIVEN TO CORRECT HE HAS BEEN FEELING DIZZY UPON STANDING UP AND HIS PCP IS WORKING ON ADJUSTING HIS MEDICATIONS HE HIT A TILE FLOOR SUSTAINED INJURY TO THIS FACE NOSE UPPER RIGHT INCISOR TEETH AND LOWER LIPS HE HAS SWELLING AROUND THE RIGHT LOWER EYE LID AND NOSE BLEED ON PRESENTATION - History of Present Illness Occurred: just prior to arrival Severity: moderate Pain Location: none Improving Factors: nothing Loss of Consciousness: brief (seconds) Associated Symptoms (Fall): denies symptoms Allergies/Adverse Reactions: Allergies Codeine Adverse Reaction (Mild, Verified 01/25/18 23:11) upset stomach Home Medications: Ambulatory Orders Carvedilol 25 mg PO BID 10/12/14 Clopidogrel Bisulfate 75 mg PO DAILY 10/12/14 Lisinopril 20 mg PO BID 10/12/14 Potassium Chloride Microencaps [Klor-Con M10] 30 meq PO DAILY 10/12/14 Pravastatin Sodium [Pravachol] 80 mg PO BEDTIME 10/12/14 Amlodipine Besylate 10 mg PO QAM 11/27/16 Furosemide [Lasix] 40 mg PO DAILY 11/27/16 Glimepiride 1 mg PO QPM 11/27/16 Metformin HCl 500 mg PO BID 11/27/16 Nitroglycerin 0.4 mg SL PRN PRN 11/27/16 Phentermine HCl 37.5 mg PO DAILY PRN 11/27/16 Aspirin 325 mg PO DAILY 01/17/17 Hydrochlorothiazide 12.5 mg PO BID 01/17/17 Levofloxacin [Levaquin] 500 mg PO DAILY 01/17/17 Spironolactone [Aldactone] 25 mg PO 0700 01/17/17 predniSONE 10 mg PO DAILY 01/17/17 Albuterol Inhaler [Ventolin Hfa Inhaler] 2 puff INH Q4HR PRN #1 inh 01/19/17 Albuterol Sulfate Nebs [Proventil Nebs] 2.5 mg NEB QID PRN #30 01/19/17 Bifidobacterium Infantis [Align] 4 mg PO DAILY #30 01/19/17 Loratadine [Claritin] 10 mg PO DAILY #30 cap 01/19/17 Mometasone Furoate (Nasal) [Nasonex] 50 mcg NA DAILY #1 ml 01/19/17 Tamsulosin [Flomax] 0.4 mg PO DAILY #30 01/19/17 guaiFENesin ER TAB [Mucinex Tab] 600 mg PO BID #28 01/19/17 methylPREDNISolone TAB [Medrol Tab] 4 mg PO DAILY #1 pack 01/19/17 Benzonatate Perles [Tessalon Perles] 200 mg PO BID #40 cap 07/30/17 Cefuroxime Axetil [Ceftin] 500 mg PO BID #20 tab 07/30/17 Doxycycline Hyclate 100 mg PO BID #30 cap 07/30/17 Acetamin W/Cod #3 Tab [Tylenol w/CODEINE #3] 1 ea PO Q6HR PRN #40 tab 01/26/18 Cephalexin Monohydrate [Keflex] 500 mg PO Q8HR #30 cap 01/26/18 Past Medical History (General) - Patient Medical History Hx Seizures: No Hx Stroke: No Hx Dementia: No Hx Asthma: No Hx of COPD: No Hx Cardiac Disorders: Yes Hx Congestive Heart Failure: No Hx Pacemaker: No Hx Hypertension: Yes Hx Thyroid Disease: No Hx Diabetes: Yes Hx Gastroesophageal Reflux: Yes Hx Renal Disease: No Hx Cancer: No Hx of HIV: No Hx Hepatitis C: No Hx MRSA: No - Vaccination History Hx Tetanus, Diphtheria Vaccination: No Hx Influenza Vaccination: No Hx Pneumococcal Vaccination: Yes - Social History Hx Tobacco Use: No Hx Chewing Tobacco Use: No Hx Alcohol Use: No Hx Substance Use: No Hx Substance Use Treatment: No Hx Depression: No Hx Physical Abuse: No Hx Emotional Abuse: No Hx Suspected Abuse: No - Female History Patient : No Family Medical History - Family History Mother Family History: Unknown Hx Family;Other: ALZHEIMERS Dementia Physical Exam - Physical Exam General Appearance: Alert Head Injury: no evidence of injury ENT Exam: hearing grossly normal, other - FELDER 11 FX RIGHT UPPER INCISOR SWOLLEN LOWER LIP EPISTAXIS BRUISING OF THE TIP OF THE NOSE Neck Exam: non-tender, full range of motion, normal alignment Cardiovascular/Respiratory: regular rate, rhythm, no M/R/G, normal peripheral pulses, no JVD Back Exam: normal inspection, no CVA tenderness Extremity Exam: normal range of motion, non-tender 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, no motor/sensory deficits, alert, normal mood/affect, oriented x 3 - Thaddeus Coma Score Best Eye Response (Thaddeus): (4) open spontaneously Best Verbal Response (Thaddeus): (5) oriented Best Motor Response ([place]): (6) obeys commands Departure - Departure Clinical Impression: Fracture of maxillary sinus, Nasal bone fx-closed Time of Disposition: :11 Disposition: Discharge to Home or Self Care Condition: Good Referrals: Graham Gamino III, MD [Primary Care Provider] - 1-2 Weeks Prescriptions: Acetamin W/Cod #3 Tab [Tylenol w/CODEINE #3] 1 ea PO Q6HR PRN #40 tab PRN Reason: Mild To Moderate Pain Cephalexin Monohydrate [Keflex] 500 mg PO Q8HR #30 cap Home Medications: Ambulatory Orders Carvedilol 25 mg PO BID 10/12/14 Clopidogrel Bisulfate 75 mg PO DAILY 10/12/14 Lisinopril 20 mg PO BID 10/12/14 Potassium Chloride Microencaps [Klor-Con M10] 30 meq PO DAILY 10/12/14 Pravastatin Sodium [Pravachol] 80 mg PO BEDTIME 10/12/14 Amlodipine Besylate 10 mg PO QAM 11/27/16 Furosemide [Lasix] 40 mg PO DAILY 11/27/16 Glimepiride 1 mg PO QPM 11/27/16 Metformin HCl 500 mg PO BID 11/27/16 Nitroglycerin 0.4 mg SL PRN PRN 11/27/16 Phentermine HCl 37.5 mg PO DAILY PRN 11/27/16 Aspirin 325 mg PO DAILY 01/17/17 Hydrochlorothiazide 12.5 mg PO BID 01/17/17 Levofloxacin [Levaquin] 500 mg PO DAILY 01/17/17 Spironolactone [Aldactone] 25 mg PO 0700 01/17/17 predniSONE 10 mg PO DAILY 01/17/17 Albuterol Inhaler [Ventolin Hfa Inhaler] 2 puff INH Q4HR PRN #1 inh 01/19/17 Albuterol Sulfate Nebs [Proventil Nebs] 2.5 mg NEB QID PRN #30 01/19/17 Bifidobacterium Infantis [Align] 4 mg PO DAILY #30 01/19/17 Loratadine [Claritin] 10 mg PO DAILY #30 cap 01/19/17 Mometasone Furoate (Nasal) [Nasonex] 50 mcg NA DAILY #1 ml 01/19/17 Tamsulosin [Flomax] 0.4 mg PO DAILY #30 01/19/17 guaiFENesin ER TAB [Mucinex Tab] 600 mg PO BID #28 01/19/17 methylPREDNISolone TAB [Medrol Tab] 4 mg PO DAILY #1 pack 01/19/17 Benzonatate Perles [Tessalon Perles] 200 mg PO BID #40 cap 07/30/17 Cefuroxime Axetil [Ceftin] 500 mg PO BID #20 tab 07/30/17 Doxycycline Hyclate 100 mg PO BID #30 cap 07/30/17 Acetamin W/Cod #3 Tab [Tylenol w/CODEINE #3] 1 ea PO Q6HR PRN #40 tab 01/26/18 Cephalexin Monohydrate [Keflex] 500 mg PO Q8HR #30 cap 01/26/18 Additional Instructions: PT WAS ADVISED TO HOLD PLAVIX AND FOLLOW UP WITH DR HARRIS ENT SURGEON CALL OFFICE ON SATURDAY HIS ORTHOSTASIS WAS CORRECTED WITH FLUID HE NEEDS TO HAVE HIS PCP ADJUST HIS MEDICATIONS WAS GIVEN KEFLEX AND TYLENOL # 3 NOT TO BLOW THE NOSE BECAUSE OF THE SUB Q EMPHYSEMA FROM AIR LEAK FROM HIS SINUS FRACTURE
[2018-01-25 23:11] VITALS: TEMP 96.7
[2018-01-25] MEDS ORDERED: SODIUM CHLORIDE 0.9% 1000ML 500 ML IVS ONE (23:32)
[2018-01-25] MEDS ORDERED: PHENYLEPHRINE 0.5% BNAS ONE (23:33)
--- NOTE | 2018-01-26 00:21 | CT ---
EXAM: CT sinuses without contrast. INDICATION: Head trauma. TECHNIQUE: Contiguous axial CT images of the sinuses. Intravenous contrast: Absent. Reformats: MPRs created and utilized. DLP 255 mGy-cm. This exam was performed according to our departmental dose-optimization program, which includes automated exposure control, adjustment of the mA and/or kV according to patient size and/or use of iterative reconstruction technique. COMPARISON: None. FINDINGS: Subcutaneous: Extensive subcutaneous emphysema along the right preseptal and periorbital soft tissues. There is extensive soft tissue swelling with subcutaneous emphysema along the maxillary and mandibular regions. Globes: Intact No retro-orbital hematoma. Orbits: Intact. Mandible: Visualized portions appear intact Maxilla: Intact. Nasal bones/septum: There are mildly displaced and comminuted fractures involving the nasal bones there is rightward deviation of the nasal septum. Zygomatic arches: Intact. Paranasal sinuses: There are displaced and comminuted fractures involving the anterior, medial, and posterolateral perez of the bilateral maxillary sinuses. There are displaced fractures involving the bilateral pterygoid plates. There are air-hemorrhage levels within both maxillary sinuses. IMPRESSION: Displaced and comminuted fractures involving the anterior, medial, and posterolateral perez of the bilateral maxillary sinuses which contain air-hemorrhage levels. Extensive soft tissue swelling with subcutaneous emphysema around the maxillary region and around the right preseptal and periorbital soft tissues. Mildly displaced and comminuted nasal bone fractures. Electronically signed by: Nav Brown MD 01/26/2018 12:19 AM CDT Workstation: [id number]
[2018-01-26] MEDS ORDERED: fentaNYL CITRATE INJ 50 MCG/ML AMP IV ONE (00:22)
--- NOTE | 2018-01-26 00:23 | CT ---
EXAM: CT cervical spine without contrast. INDICATION: Trauma. Neck pain. TECHNIQUE: Contiguous axial CT images of the cervical spine. Intravenous contrast: Absent. Reformats: MPRs created and utilized. DLP 668 mGy-cm. This exam was performed according to our departmental dose-optimization program, which includes automated exposure control, adjustment of the mA and/or kV according to patient size and/or use of iterative reconstruction technique. COMPARISON: None. FINDINGS: Alignment: Preserved. Fracture: No acute fracture or subluxation. Odontoid process: Intact. Prevertebral soft tissues: No edema. Spondylosis: Multilevel spondylosis, worst at C6-C7 with disc space narrowing, endplate sclerosis and marginal osteophytes.. Other: There are atherosclerotic calcifications of the carotid arteries. A stent is noted within the proximal left subclavian artery. IMPRESSION: 1. No CT evidence of acute osseous injury of the cervical spine. Electronically signed by: Nav Brown MD 01/26/2018 12:21 AM CDT Workstation: [id number]
--- NOTE | 2018-01-26 00:26 | CT ---
EXAM: CT head without contrast. INDICATION: Trauma. TECHNIQUE: Contiguous axial CT images of the brain. Intravenous contrast: Absent. DLP 967 mGy-cm. This exam was performed according to our departmental dose-optimization program, which includes automated exposure control, adjustment of the mA and/or kV according to patient size and/or use of iterative reconstruction technique. COMPARISON: CT sinuses done on same date. FINDINGS: Subcutaneous: There is extensive subcutaneous emphysema with edema and inflammation along the maxillary regions and right periorbital and right preseptal soft tissues. No acute intracranial hemorrhage. Is mild diffuse cerebral atrophy with periventricular and deep white matter chronic microvascular changes. There are old lacunar infarcts involving the bilateral basal ganglia. No midline shift. No mass effect. Ventricles: No hydrocephalus. Rosales-white differentiation preserved. Paranasal sinuses/mastoid air cells: There are air-hemorrhage levels within the maxillary sinuses. Bones/orbits: The maxillofacial fractures are better appreciated on the dedicated CT sinus exam. IMPRESSION: 1. No CT evidence of acute intracranial hemorrhage. 2. The facial fractures with surrounding edema and subcutaneous emphysema are better appreciated on the dedicated CT sinus exam. Electronically signed by: Nav Brown MD 01/26/2018 12:24 AM CDT Workstation: [id number]
[2018-01-26] MEDS ORDERED: HYDROCOD/APAP 5/325 (ER DISP) #3 TAB PO ONE (01:20)
[2018-01-26] MEDS ORDERED: CEPHALEXIN 500MG CAP (ER DISP) PO ONE (01:20)
[2018-01-26 01:56] VITALS: BP 124/74; O2SAT 95
== END 2018-01-26 01:45 | disposition home or self-care (01) ==
LOC: ER 22:48
DX: S02.2XXA Fracture of nasal bones, initial encounter for closed fracture (principal); S02.40DA Maxillary fracture, left side, initial encounter for closed fracture; S02.40CA Maxillary fracture, right side, initial encounter for closed fracture; I10 Essential (primary) hypertension; E11.9 Type 2 diabetes mellitus without complications; K21.9 Gastro-esophageal reflux disease without esophagitis; I25.10 Atherosclerotic heart disease of native coronary artery without angina pectoris; Z79.02 Long term (current) use of antithrombotics/antiplatelets; Z79.82 Long term (current) use of aspirin; Z79.84 Long term (current) use of oral hypoglycemic drugs; W07.XXXA Fall from chair, initial encounter; Y92.9 Unspecified place or not applicable
CPT/HCPCS: 36415; 70450; 70486; 72125; 80048; 85025; 85610; 85730; J3010; J7030

== ENCOUNTER → 2018-09-01 | Outpatient (CLI) | payer MEDICARE, OTHER | LOC: GMAL 11:31 | PROVIDERS: ATTEND Family Medicine | DX: D51.3 Other dietary vitamin B12 deficiency anemia (principal); E55.9 Vitamin D deficiency, unspecified ==

== ENCOUNTER 2018-10-22 05:28 | Emergency (ER) | payer MEDICARE, OTHER ==
[2018-10-22 05:58] VITALS: TEMP 97.6
--- NOTE | 2018-10-22 06:16 | RAD ---
EXAM DESCRIPTION: Foot,Right 3 Views CLINICAL HISTORY: 68 years Male, pain 1st metatarsal after trauma 2 days ago COMPARISON: None. FINDINGS: Right foot 3 views No fracture or dislocation. Soft tissues are unremarkable. IMPRESSION: No acute abnormality. Electronically signed by: Dominick Ch MD 10/22/2018 6:[address] [facility]
--- NOTE | 2018-10-22 06:19 | ED.PDOC ---
History of Present Illness - General Chief Complaint: Lower Extremity Injury Stated Complaint: left foot injury Time Seen by Provider: 10/22/18 05:46 Source: patient Exam Limitations: no limitations - History of Present Illness Initial Comments: the patient is a 68-year-old male presenting to emergency room secondary to pain in the distal first metatarsal of the right foot after he stepped off a step up stairs wrong yesterday. He does have erythema towards the end around the first metatarsal phalangeal joint. It is very tender to touch. He had pain immediately. No history of gout. No obvious deformity. He is neurovascularly is baseline. No other injuries. Timing/Duration: 24 hours Severity: moderate Improving Factors: immobilization Worsening Factors: movement Associated Symptoms: denies symptoms Allergies/Adverse Reactions: Allergies Codeine Adverse Reaction (Mild, Verified 01/25/18 23:11) upset stomach Home Medications: Ambulatory Orders Carvedilol 25 mg PO BID 10/12/14 Clopidogrel Bisulfate 75 mg PO DAILY 10/12/14 Lisinopril 20 mg PO BID 10/12/14 Potassium Chloride Microencaps [Klor-Con M10] 30 meq PO DAILY 10/12/14 Pravastatin Sodium [Pravachol] 80 mg PO BEDTIME 10/12/14 Amlodipine Besylate 10 mg PO QAM 11/27/16 Furosemide [Lasix] 40 mg PO DAILY 11/27/16 Glimepiride 1 mg PO QPM 11/27/16 Metformin HCl 500 mg PO BID 11/27/16 Nitroglycerin 0.4 mg SL PRN PRN 11/27/16 Phentermine HCl 37.5 mg PO DAILY PRN 11/27/16 Aspirin 325 mg PO DAILY 01/17/17 Hydrochlorothiazide 12.5 mg PO BID 01/17/17 Levofloxacin [Levaquin] 500 mg PO DAILY 01/17/17 Spironolactone [Aldactone] 25 mg PO 0700 01/17/17 predniSONE 10 mg PO DAILY 01/17/17 Albuterol Inhaler [Ventolin Hfa Inhaler] 2 puff INH Q4HR PRN #1 inh 01/19/17 Albuterol Sulfate Nebs [Proventil Nebs] 2.5 mg NEB QID PRN #30 01/19/17 Bifidobacterium Infantis [Align] 4 mg PO DAILY #30 01/19/17 Loratadine [Claritin] 10 mg PO DAILY #30 cap 01/19/17 Mometasone Furoate (Nasal) [Nasonex] 50 mcg NA DAILY #1 ml 01/19/17 Tamsulosin [Flomax] 0.4 mg PO DAILY #30 01/19/17 guaiFENesin ER TAB [Mucinex Tab] 600 mg PO BID #28 01/19/17 methylPREDNISolone TAB [Medrol Tab] 4 mg PO DAILY #1 pack 01/19/17 Benzonatate Perles [Tessalon Perles] 200 mg PO BID #40 cap 07/30/17 Cefuroxime Axetil [Ceftin] 500 mg PO BID #20 tab 07/30/17 Doxycycline Hyclate 100 mg PO BID #30 cap 07/30/17 Acetamin W/Cod #3 Tab [Tylenol w/CODEINE #3] 1 ea PO Q6HR PRN #40 tab 01/26/18 Cephalexin Monohydrate [Keflex] 500 mg PO Q8HR #30 cap 01/26/18 Review of Systems - Review of Systems Constitutional: States: no symptoms reported EENTM: States: no symptoms reported Respiratory: States: no symptoms reported Cardiology: States: no symptoms reported Gastrointestinal/Abdominal: States: no symptoms reported Genitourinary: States: no symptoms reported Musculoskeletal: States: see HPI Skin: States: no symptoms reported Neurological: States: no symptoms reported Endocrine: States: no symptoms reported All other Systems: No Change from Baseline Past Medical History (General) - Patient Medical History Hx Seizures: No Hx Stroke: No Hx Dementia: No Hx Asthma: No Hx of COPD: No Hx Cardiac Disorders: Yes Hx Congestive Heart Failure: No Hx Pacemaker: No Hx Hypertension: Yes Hx Thyroid Disease: No Hx Diabetes: Yes Hx Gastroesophageal Reflux: Yes Hx Renal Disease: No Hx Cancer: No Hx of HIV: No Hx Hepatitis C: No Hx MRSA: No - Vaccination History Hx Tetanus, Diphtheria Vaccination: No Hx Influenza Vaccination: No Hx Pneumococcal Vaccination: Yes - Social History Hx Tobacco Use: No Hx Chewing Tobacco Use: Yes Hx Alcohol Use: No Hx Substance Use: No Hx Substance Use Treatment: No Hx Depression: No Hx Physical Abuse: No Hx Emotional Abuse: No Hx Suspected Abuse: No - Female History Patient : No Family Medical History - Family History Mother Family History: Unknown Hx Family;Other: ALZHEIMERS Dementia Physical Exam - Physical Exam General Appearance: Alert, Comfortable, No apparent distress Eye Exam: bilateral normal Ears, Nose, Throat: hearing grossly normal, normal pharynx Neck: non-tender, supple Respiratory: no respiratory distress, no accessory muscle use Cardiovascular/Chest: normal peripheral pulses, no edema Peripheral Pulses: dorsalis pedis,right: 2+, dorsalis pedis,left: 2+ Gastrointestinal/Abdominal: other - obese Rectal Exam: deferred Extremity: normal range of motion, no pedal edema, no calf tenderness, normal capillary refill, other - tenderness to palpation as above with associated mild swelling and erythema 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 X-ray shows no evidence of fracture or dislocation. This is essentially a sprain of the first metatarsophalangeal joint. The patient is placed in a hard platform shoe. He needs to use this for 2-3 weeks. Motrin or Aleve can be used for pain. ER warnings were given. Departure - Departure Clinical Impression: Sprain, metatarsophalangeal joint Qualifiers: Encounter type: initial encounter Qualified Code(s): S93.529A - Sprain of metatarsophalangeal joint of unspecified toe(s), initial encounter Disposition: Discharge to Home or Self Care Condition: Fair Departure Forms: ED Discharge - Pt. Copy, Patient Portal Self Enrollment Instructions: Sprain (DC) Diet: diabetic diet Activity: increase activity as tolerated Referrals: Graham Gamino III, MD [Primary Care Provider] - 1-2 Weeks Home Medications: Ambulatory Orders Carvedilol 25 mg PO BID 10/12/14 Clopidogrel Bisulfate 75 mg PO DAILY 10/12/14 Lisinopril 20 mg PO BID 10/12/14 Potassium Chloride Microencaps [Klor-Con M10] 30 meq PO DAILY 10/12/14 Pravastatin Sodium [Pravachol] 80 mg PO BEDTIME 10/12/14 Amlodipine Besylate 10 mg PO QAM 11/27/16 Furosemide [Lasix] 40 mg PO DAILY 11/27/16 Glimepiride 1 mg PO QPM 11/27/16 Metformin HCl 500 mg PO BID 11/27/16 Nitroglycerin 0.4 mg SL PRN PRN 11/27/16 Phentermine HCl 37.5 mg PO DAILY PRN 11/27/16 Aspirin 325 mg PO DAILY 01/17/17 Hydrochlorothiazide 12.5 mg PO BID 01/17/17 Levofloxacin [Levaquin] 500 mg PO DAILY 01/17/17 Spironolactone [Aldactone] 25 mg PO 0700 01/17/17 predniSONE 10 mg PO DAILY 01/17/17 Albuterol Inhaler [Ventolin Hfa Inhaler] 2 puff INH Q4HR PRN #1 inh 01/19/17 Albuterol Sulfate Nebs [Proventil Nebs] 2.5 mg NEB QID PRN #30 01/19/17 Bifidobacterium Infantis [Align] 4 mg PO DAILY #30 01/19/17 Loratadine [Claritin] 10 mg PO DAILY #30 cap 01/19/17 Mometasone Furoate (Nasal) [Nasonex] 50 mcg NA DAILY #1 ml 01/19/17 Tamsulosin [Flomax] 0.4 mg PO DAILY #30 01/19/17 guaiFENesin ER TAB [Mucinex Tab] 600 mg PO BID #28 01/19/17 methylPREDNISolone TAB [Medrol Tab] 4 mg PO DAILY #1 pack 01/19/17 Benzonatate Perles [Tessalon Perles] 200 mg PO BID #40 cap 07/30/17 Cefuroxime Axetil [Ceftin] 500 mg PO BID #20 tab 07/30/17 Doxycycline Hyclate 100 mg PO BID #30 cap 07/30/17 Acetamin W/Cod #3 Tab [Tylenol w/CODEINE #3] 1 ea PO Q6HR PRN #40 tab 01/26/18 Cephalexin Monohydrate [Keflex] 500 mg PO Q8HR #30 cap 01/26/18 Additional Instructions: the patient is 68-year-old male presenting to the emergency room secondary to pain towards the distal aspect of his first metatarsal of his right foot secondary to injury 2 days ago. X-ray shows no evidence of fracture or dislocation. This is essentially a sprain of the first metatarsophalangeal joint. The patient is placed in a hard platform shoe. He needs to use this for 2-3 weeks. Motrin or Aleve can be used for pain. ER warnings were given.
[2018-10-22 06:33] VITALS: BP 106/73; O2SAT 95
== END 2018-10-22 06:30 | disposition home or self-care (01) ==
LOC: ER 05:28
DX: S93.521A Sprain of metatarsophalangeal joint of right great toe, initial encounter (principal); K21.9 Gastro-esophageal reflux disease without esophagitis; E11.9 Type 2 diabetes mellitus without complications; I10 Essential (primary) hypertension; I51.9 Heart disease, unspecified; Z87.891 Personal history of nicotine dependence; X50.9XXA Other and unspecified overexertion or strenuous movements or postures, initial encounter; Y92.9 Unspecified place or not applicable; Z88.5 Allergy status to narcotic agent; Z79.899 Other long term (current) drug therapy; Z79.82 Long term (current) use of aspirin

== ENCOUNTER → 2019-03-10 | Outpatient (CLI) | payer MEDICARE, OTHER | LOC: GMAL 10:25 | PROVIDERS: ATTEND Family Medicine | DX: I10 Essential (primary) hypertension (principal); E11.42 Type 2 diabetes mellitus with diabetic polyneuropathy; E78.49 Other hyperlipidemia; Z12.5 Encounter for screening for malignant neoplasm of prostate | CPT/HCPCS: 84550; G0103 ==

== ENCOUNTER → 2020-03-09 | Outpatient (CLI) | payer MEDICARE, OTHER | LOC: GMAL 10:32 | PROVIDERS: ATTEND Family Medicine | DX: D51.3 Other dietary vitamin B12 deficiency anemia (principal); I10 Essential (primary) hypertension; E55.9 Vitamin D deficiency, unspecified; E11.42 Type 2 diabetes mellitus with diabetic polyneuropathy; R53.83 Other fatigue; M79.671 Pain in right foot; E78.49 Other hyperlipidemia ==

== ENCOUNTER 2020-04-10 07:58 | Emergency (ER) | payer MEDICARE, OTHER ==
[2020-04-10] MEDS ORDERED: AZITHROMYCIN IV 500 MG in SODIUM CHLORIDE 0.9% 250ML 250 ML IVPB ONE (08:10)
[2020-04-10] MEDS ORDERED: cefTRIAXone SODIUM 1 GM in SODIUM CHL 0.9% 50ML MIN-BAG+ 50 ML IVPB ONE (08:10)
[2020-04-10] MEDS ORDERED: DEXAMETHASONE INJ 10 MG/ML VIAL IV ONE (08:11)
--- NOTE | 2020-04-10 08:14 | ED.PDOC ---
History of Present Illness - General Chief Complaint: Respiratory Problem Stated Complaint: Shortness of Breath Time Seen by Provider: 04/10/20 08:09 Source: patient, family, EMS Exam Limitations: no limitations - History of Present Illness Comments: Pt says he's had URI symptoms for ~2 weeks, but gradually worsening in the past 9 days. EMS reports that on arrival, pt had O2 sat of 82% on RA but increased to above 90% on 4L N/C. Pt denies CP. Pt reports F/C and dry cough. Pt denies any asthma, COPD or CHF history. 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 Pt is not on oxygen at home. Timing/Duration: other - 2 weeks Cough Quality/Degree: moderate, dry cough Possible Cause: illness exposure, other - Dx with COVID 03/30 Improving Factors: rest Worsening Factors: other - exertion Associated Symptoms: cough, fever/chills, lightheadedness, shortness of breath Respiratory Risk Factors: exposure to illness Allergies/Adverse Reactions: Allergies Codeine Adverse Reaction (Mild, Verified 01/25/18 23:11) upset stomach Home Medications: Ambulatory Orders Carvedilol 25 mg PO BID 10/12/14 Clopidogrel Bisulfate 75 mg PO DAILY 10/12/14 Lisinopril 20 mg PO BID 10/12/14 Potassium Chloride Microencaps [Klor-Con M10] 30 meq PO DAILY 10/12/14 Pravastatin Sodium [Pravachol] 80 mg PO BEDTIME 10/12/14 Amlodipine Besylate 10 mg PO QAM 11/27/16 Furosemide [Lasix] 40 mg PO DAILY 11/27/16 Glimepiride 1 mg PO QPM 11/27/16 Metformin HCl [Metformin Hydrochloride] 500 mg PO BID 11/27/16 Nitroglycerin 0.4 mg SL PRN PRN 11/27/16 Phentermine HCl 37.5 mg PO DAILY PRN 11/27/16 Aspirin 325 mg PO DAILY 01/17/17 Hydrochlorothiazide 12.5 mg PO BID 01/17/17 Levofloxacin [Levaquin] 500 mg PO DAILY 01/17/17 Spironolactone [Aldactone] 25 mg PO 0700 01/17/17 predniSONE 10 mg PO DAILY 01/17/17 Albuterol Inhaler [Ventolin Hfa Inhaler] 2 puff INH Q4HR PRN #1 inh 01/19/17 Albuterol Sulfate Nebs [Proventil Nebs] 2.5 mg NEB QID PRN #30 01/19/17 Bifidobacterium Infantis [Align] 4 mg PO DAILY #30 01/19/17 Loratadine [Claritin] 10 mg PO DAILY #30 cap 01/19/17 Mometasone Furoate (Nasal) [Nasonex] 50 mcg NA DAILY #1 ml 01/19/17 Tamsulosin [Flomax] 0.4 mg PO DAILY #30 01/19/17 guaiFENesin ER TAB [Mucinex Tab] 600 mg PO BID #28 01/19/17 methylPREDNISolone TAB [Medrol Tab] 4 mg PO DAILY #1 pack 01/19/17 Benzonatate Perles [Tessalon Perles] 200 mg PO BID #40 cap 07/30/17 Cefuroxime Axetil [Ceftin] 500 mg PO BID #20 tab 07/30/17 Doxycycline Hyclate 100 mg PO BID #30 cap 07/30/17 Acetamin W/Cod #3 Tab [Tylenol w/CODEINE #3] 1 ea PO Q6HR PRN #40 tab 01/26/18 Cephalexin Monohydrate [Keflex] 500 mg PO Q8HR #30 cap 01/26/18 Review of Systems - Review of Systems Constitutional: States: chills, fever, weakness EENTM: States: no symptoms reported Cardiology: Denies: chest pain, edema, palpitations, syncope Gastrointestinal/Abdominal: States: no symptoms reported. Denies: abdominal pain, constipation, diarrhea, nausea, vomiting Genitourinary: States: no symptoms reported. Denies: dysuria, frequency, hematuria Musculoskeletal: States: no symptoms reported Skin: States: no symptoms reported Neurological: States: no symptoms reported Past Medical History (General) - Patient Medical History Hx Seizures: No Hx Stroke: No Hx Dementia: No Hx Asthma: No Hx of COPD: No Hx Cardiac Disorders: Yes Hx Congestive Heart Failure: No Hx Pacemaker: No Hx Hypertension: Yes Hx Thyroid Disease: No Hx Diabetes: Yes Hx Gastroesophageal Reflux: Yes Hx Renal Disease: No Hx Cancer: No Hx of HIV: No Hx Hepatitis C: No Hx MRSA: No - Vaccination History Hx Tetanus, Diphtheria Vaccination: No Hx Influenza Vaccination: No Hx Pneumococcal Vaccination: Yes - Social History Hx Tobacco Use: No Hx Chewing Tobacco Use: Yes Hx Alcohol Use: No Hx Substance Use: No Hx Substance Use Treatment: No Hx Depression: No Hx Physical Abuse: No Hx Emotional Abuse: No Hx Suspected Abuse: No - Female History Patient : No Family Medical History - Family History Mother Family History: Unknown Hx Family;Other: ALZHEIMERS Dementia Physical Exam - Physical Exam General Appearance: Alert, Obvious distress - mild, Obese Neck: full range of motion Respiratory: respiratory distress - mild, decreased breath sounds Cardiovascular/Chest: normal peripheral pulses, regular rate, rhythm, no edema, no gallop, no JVD, no murmur Gastrointestinal/Abdominal: normal bowel sounds, non tender, soft, no organomegaly Extremity: non-tender, normal inspection, no pedal edema Neurologic: alert, normal mood/affect, oriented x 3 Skin Exam: normal color, warm/dry Progress - Progress Progress: 04/10/20 08:[address] elevations on EKG. Incomplete RBBB. ?Q wave lead III. NSST changes. NSR 68. 04/10/20 08:48 CXR reviewed. Bilateral infiltrates. Pt reassessed. Lying in bed. Mild respiratory distress. RR mid 20's, O2 sat 91-93% on 4L N/C. 04/10/20 08:49 Nurse reports that pt is now on tail end of 2nd rx of Zpak. 04/10/20 08:53 D/w Olamide Antunez. She will admit. She requested d-dimer. Lab ordered. - EKG/XRAY/CT EKG: Sinus - 68, RBBB - incomplete, nonspecific ST T wave Chg Departure - Departure Clinical Impression: Pneumonia, Respiratory failure, COVID-19 Time of Disposition: 09:21 Disposition: Admit Patient Condition: Fair Departure Forms: ED Discharge - Pt. Copy, Patient Portal Self Enrollment Diet: low salt diet Referrals: Graham Gamino III, MD [Primary Care Provider] - 1-2 Weeks Home Medications: Ambulatory Orders Carvedilol 25 mg PO BID 10/12/14 Clopidogrel Bisulfate 75 mg PO DAILY 10/12/14 Lisinopril 20 mg PO BID 10/12/14 Potassium Chloride Microencaps [Klor-Con M10] 30 meq PO DAILY 10/12/14 Pravastatin Sodium [Pravachol] 80 mg PO BEDTIME 10/12/14 Amlodipine Besylate 10 mg PO QAM 11/27/16 Furosemide [Lasix] 40 mg PO DAILY 11/27/16 Glimepiride 1 mg PO QPM 11/27/16 Metformin HCl [Metformin Hydrochloride] 500 mg PO BID 11/27/16 Nitroglycerin 0.4 mg SL PRN PRN 11/27/16 Phentermine HCl 37.5 mg PO DAILY PRN 11/27/16 Aspirin 325 mg PO DAILY 01/17/17 Hydrochlorothiazide 12.5 mg PO BID 01/17/17 Levofloxacin [Levaquin] 500 mg PO DAILY 01/17/17 Spironolactone [Aldactone] 25 mg PO 0700 01/17/17 predniSONE 10 mg PO DAILY 01/17/17 Albuterol Inhaler [Ventolin Hfa Inhaler] 2 puff INH Q4HR PRN #1 inh 01/19/17 Albuterol Sulfate Nebs [Proventil Nebs] 2.5 mg NEB QID PRN #30 01/19/17 Bifidobacterium Infantis [Align] 4 mg PO DAILY #30 01/19/17 Loratadine [Claritin] 10 mg PO DAILY #30 cap 01/19/17 Mometasone Furoate (Nasal) [Nasonex] 50 mcg NA DAILY #1 ml 01/19/17 Tamsulosin [Flomax] 0.4 mg PO DAILY #30 01/19/17 guaiFENesin ER TAB [Mucinex Tab] 600 mg PO BID #28 01/19/17 methylPREDNISolone TAB [Medrol Tab] 4 mg PO DAILY #1 pack 01/19/17 Benzonatate Perles [Tessalon Perles] 200 mg PO BID #40 cap 07/30/17 Cefuroxime Axetil [Ceftin] 500 mg PO BID #20 tab 07/30/17 Doxycycline Hyclate 100 mg PO BID #30 cap 07/30/17 Acetamin W/Cod #3 Tab [Tylenol w/CODEINE #3] 1 ea PO Q6HR PRN #40 tab 01/26/18 Cephalexin Monohydrate [Keflex] 500 mg PO Q8HR #30 cap 01/26/18 Decision To Admit - Decistion To Admit Decision to Admit Reason: Medical Nature Decision to Admit Date: 04/10/20 Decision to Admit Time: 09:22
--- NOTE | 2020-04-10 09:17 | RAD ---
EXAM: Chest,1 View CLINICAL INDICATION: Shortness of breath, cough COMPARISON: 07/30/2017 FINDINGS: A single view of the chest was obtained. The heart size is moderately enlarged. The pulmonary vascularity is moderately congested. Bilateral perihilar infiltrates are noted. There is no pneumothorax. No pleural effusion is seen. IMPRESSION: Pulmonary vascular congestion. Bilateral perihilar infiltrates which may indicate pulmonary edema and/or pneumonia. Electronically signed by: Ky Guerra MD 04/10/2020 9:15 AM CDT
[2020-04-10 10:18] VITALS: TEMP 99.5
[2020-04-10 14:49] VITALS: BP 113/77; O2SAT 93
[2020-04-10] MEDS ORDERED: LEVALBUTEROL NEBS 1.25 MG/3 ML VIAL NEB PRN (15:28)
[2020-04-10] MEDS ORDERED: ACETAMINOPHEN 325 MG TAB PO PRN (15:28)
[2020-04-10] MEDS ORDERED: SODIUM CHLORIDE 0.9% (FLUSH) 10 ML SYG IV PRN (15:28)
[2020-04-10] MEDS ORDERED: ONDANSETRON INJ 4 MG/2 ML VIAL IV PRN (15:28)
[2020-04-10] MEDS ORDERED: IBUPROFEN 400 MG TAB PO PRN (15:28)
[2020-04-10] MEDS ORDERED: IV SET AND CAP CHANGE INJ INJ SCH (15:30)
[2020-04-10] MEDS ORDERED: DEXTROSE 50% 25 GM/50 ML SYG IV PRN (15:39)
[2020-04-10] MEDS ORDERED: GLUCAGON INJ 1 MG VIAL SUBCU PRN (15:39)
[2020-04-10] MEDS ORDERED: ENOXAPARIN SODIUM 40 MG/0.4 ML SYG SUBCU SCH (16:00)
[2020-04-10] MEDS ORDERED: LEVALBUTEROL NEBS 1.25 MG/3 ML VIAL NEB SCH (16:00)
[2020-04-10] MEDS ORDERED: INSULIN LISPRO 100 UNITS/ML PEN SUBCU SCH (16:30)
[2020-04-10] MEDS ORDERED: hydroCHLOROthiazide 12.5 MG CAP PO SCH (17:00)
[2020-04-10] MEDS ORDERED: metFORMIN HCL 500 MG TAB PO SCH (17:00)
[2020-04-10] MEDS ORDERED: POTASSIUM CHLORIDE 10 MEQ TAB PO SCH (17:00)
[2020-04-10] MEDS ORDERED: SODIUM CHLORIDE 0.9% (FLUSH) 10 ML SYG IV SCH (21:00)
[2020-04-10] MEDS ORDERED: CARVEDILOL 3.125 MG TAB PO SCH (21:00)
[2020-04-10] MEDS ORDERED: ESZOPICLONE 2 MG PO SCH (21:00)
[2020-04-10] MEDS ORDERED: PRAVASTATIN SODIUM 20 MG TAB PO SCH (21:00)
[2020-04-11] MEDS ORDERED: PANTOPRAZOLE SODIUM IV 40 MG VIAL IV SCH (06:30)
[2020-04-11] MEDS ORDERED: SPIRONOLACTONE 25 MG TAB PO SCH (07:00)
[2020-04-11] MEDS ORDERED: cefTRIAXone SODIUM 1 GM in SODIUM CHL 0.9% 50ML MIN-BAG+ 50 ML IVPB SCH (09:00)
[2020-04-11] MEDS ORDERED: TAMSULOSIN 0.4 MG CAP PO SCH (09:00)
[2020-04-11] MEDS ORDERED: LISINOPRIL 10 MG TAB PO SCH (09:00)
[2020-04-11] MEDS ORDERED: FUROSEMIDE 40 MG TAB PO SCH (09:00)
[2020-04-11] MEDS ORDERED: RANOLAZINE ER 500 MG TAB PO SCH (09:00)
[2020-04-11] MEDS ORDERED: CLOPIDOGREL 75 MG TAB PO SCH (09:00)
[2020-04-11] MEDS ORDERED: ASPIRIN (CHEWABLE) 81 MG TAB PO SCH (09:00)
[2020-04-11] MEDS ORDERED: DEXAMETHASONE INJ 4 MG/ML VIAL IV SCH (09:00)
[2020-04-11] MEDS ORDERED: AZITHROMYCIN IV 500 MG in SODIUM CHLORIDE 0.9% 250ML 250 ML IVPB SCH (10:00)
== END 2020-04-10 14:15 | disposition left against medical advice (07) ==
LOC: ER 07:58 → MS 15:06 → UNDOADMOB 15:06 → UNDODISOB 16:00
DX: U07.1 COVID-19 (principal); J12.89 Other viral pneumonia; J96.90 Respiratory failure, unspecified, unspecified whether with hypoxia or hypercapnia; I44.0 Atrioventricular block, first degree; I45.10 Unspecified right bundle-branch block; I25.10 Atherosclerotic heart disease of native coronary artery without angina pectoris; I10 Essential (primary) hypertension; E11.9 Type 2 diabetes mellitus without complications; K21.9 Gastro-esophageal reflux disease without esophagitis; Z53.29 Procedure and treatment not carried out because of patient's decision for other reasons; Z79.02 Long term (current) use of antithrombotics/antiplatelets; Z79.84 Long term (current) use of oral hypoglycemic drugs; Z79.82 Long term (current) use of aspirin; Z79.52 Long term (current) use of systemic steroids; Z79.899 Other long term (current) drug therapy; Z88.6 Allergy status to analgesic agent; Z95.1 Presence of aortocoronary bypass graft; Z87.891 Personal history of nicotine dependence
CPT/HCPCS: 36415; 36600; 71045; 80053; 82803; 82805; 83605; 83880; 84484; 85025; 85379; 86140; 87040; 93005; 96365; 96366; 96367; 96375; 99285; J0456; J0696; J1100; J7050

== ENCOUNTER → 2020-09-12 | Outpatient (CLI) | payer MEDICARE, OTHER | LOC: GMAL 11:05 | PROVIDERS: ATTEND Family Medicine | DX: D51.3 Other dietary vitamin B12 deficiency anemia (principal); E55.9 Vitamin D deficiency, unspecified; N40.0 Benign prostatic hyperplasia without lower urinary tract symptoms; I10 Essential (primary) hypertension; E78.49 Other hyperlipidemia ==